=== PATIENT | male | born 1965 | race Caucasian/White ===

== ENCOUNTER 2018-02-23 15:16 | Emergency (ER) | payer MEDICAID, OTHER ==
[~2018-02-23] VITALS: Ht 180.3 cm; Wt 81.6 kg
[2018-02-23 15:21] VITALS: BP 135/88
[2018-02-23 16:35] VITALS: BP 130/85
== END 2018-02-23 16:33 | disposition home or self-care (01) ==
LOC: MED 15:16
DX: S80.12XA Contusion of left lower leg, initial encounter (principal); Z88.0 Allergy status to penicillin; X58.XXXA Exposure to other specified factors, initial encounter; Y93.89 Activity, other specified; Y92.89 Other specified places as the place of occurrence of the external cause; Y99.8 Other external cause status
CPT/HCPCS: 73590; 99283

== ENCOUNTER 2018-03-17 23:50 | Emergency (ER) | payer OTHER ==
[~2018-03-17] VITALS: Ht 179.1 cm; Wt 80.7 kg
[2018-03-17 23:57] VITALS: BP 129/91
[2018-03-18] MEDS ORDERED: HYDROcodone/APAP 5/325 MG 1 TAB TAB PO ONE (00:55)
[2018-03-18] MEDS ORDERED: LIDOCAINE MPF 1% 5mL VIAL INJ ONE (00:55)
[2018-03-18 02:30] VITALS: BP 130/83
== END 2018-03-18 01:31 | disposition home or self-care (01) ==
LOC: MED 23:50
DX: S63.639A Sprain of interphalangeal joint of unspecified finger, initial encounter (principal); Z88.0 Allergy status to penicillin; V28.4XXA Motorcycle driver injured in noncollision transport accident in traffic accident, initial encounter; Y93.55 Activity, bike riding; Y92.410 Unspecified street and highway as the place of occurrence of the external cause; Y99.8 Other external cause status
CPT/HCPCS: 29130; 73130; 99283; J2001

== ENCOUNTER 2018-12-28 13:30 | Emergency (ER) | payer OTHER ==
[~2018-12-28] VITALS: Ht 180.3 cm; Wt 81.6 kg
[2018-12-28 13:37] VITALS: BP 141/94
--- NOTE | 2018-12-28 13:38 | NUR ---
PATIENT PRESENTS TO ED WITH L EYE PAIN X1 AND A HALF MONTHS. PT NOTICED REDNESS YESTERDAY WHEN HE WOKE UP AND NOTED 10/10 PAIN WHEN APPLYING PRESSURE TO EYE. +PHOTOSENSITIVITY +FEVER +NAUSEA +BLURRING OF VISION +H/A, L SIDE -VOMITING. PERRLA; AAOX4 WITH EVEN AND STEADY GAIT; LUNGS CLEAR BL; HR EVEN AND REGULAR; VSS; PATIENT POSITIONED FOR COMFORT; HOB ELEVATED; BEDRAILS UP X2; BED DOWN. ER MD MADE AWARE OF PT STATUS.
[2018-12-28] MEDS ORDERED: ACETAMINOPHEN EXTRA STRENGTH 500 MG TAB PO ONE (14:10)
[2018-12-28] MEDS ORDERED: TETRACAINE HCL/PF 0.5% OPTH 4 ML BTL OP ONE (14:10)
[2018-12-28] MEDS ORDERED: FLUORESCEIN OPTH STRIP 1 MG OP ONE (14:10)
[2018-12-28] MEDS ORDERED: KETOROLAC 30 MG/ML VIAL IM ONE (14:15)
--- NOTE | 2018-12-28 14:15 | NUR ---
PT PRESCRIBED WITH TYLENOL 500MG BUT REFUSED. PA NOTIFIED. RETURNED TYLENOL TO [facility]
--- NOTE | 2018-12-28 14:36 | NUR ---
ER PA AT BEDSIDE PERFORMING TONOMETRY AND FLOURESCIN EXAM
[2018-12-28 15:10] VITALS: BP 137/83
--- NOTE | 2018-12-28 15:11 | NUR ---
Patient discharged with v/s stable. Written and verbal after care instructions given and explained. Patient verbalized understanding. Ambulatory with steady gait. All questions addressed prior to discharge. Advised to follow up with PMD.
--- NOTE | 2018-12-28 15:14 | NUR ---
2 BOTTLE TETRACAINE ORDERED, ONLY 1 USED. RETURNED 1 BOTTLE TO [facility].
== END 2018-12-28 15:11 | disposition home or self-care (01) ==
LOC: MED 13:30
DX: H15.102 Unspecified episcleritis, left eye (principal); R11.0 Nausea; Z88.0 Allergy status to penicillin
CPT/HCPCS: 96372; 99283; J1885

== ENCOUNTER 2019-09-20 17:59 | Emergency (ER) | payer OTHER ==
[~2019-09-20] VITALS: Ht 180.3 cm; Wt 79.4 kg
[2019-09-20 18:09] VITALS: BP 131/69
[2019-09-20] MEDS ORDERED: DICYCLOMINE HCL LIQUID 20 MG, ALUMINUM HYD/MAG/SIMETHICONE 30 ML, LIDOCAINE VISCOUS 2% ... PO ONE ×3 (18:35)
[2019-09-20] MEDS ORDERED: LIDOCAINE VISCOUS 2% 20 ML UDC ONE (18:36)
[2019-09-20] MEDS ORDERED: DICYCLOMINE HCL LIQUID 10 MG/5 ML UDC ONE (18:36)
[2019-09-20] MEDS ORDERED: ALUMINUM HYD/MAG/SIMETHICONE 30 ML UDC ONE (18:36)
[2019-09-20] MEDS ORDERED: ACETAMINOPHEN EXTRA STRENGTH 500 MG TAB PO ONE (18:40)
[2019-09-20] MEDS ORDERED: IBUPROFEN 400 MG TAB PO ONE (18:40)
[2019-09-20 18:57] LABS: BASOPHILS # (AUTO) 0.1 K/uL (0.00-0.22); BASOPHILS % (AUTO) 0.9 % (0.0-2.0); EOSINOPHILS % (AUTO) 0.1 % (0.0-4.0); HEMATOCRIT 47.7 % (36-52); HEMOGLOBIN 16.1 g/dL (12.0-18.0); LYMPHOCYTES # (AUTO) 1.1 K/uL (2.0-11.5); LYMPHOCYTES % (AUTO) 18.8 % (20.5-51.1); MEAN CORPUSCULAR HEMOGLOBIN 32 pg (27-31); MEAN CORPUSCULAR HGB CONC 34 g/dL (33-37); MEAN CORPUSCULAR VOLUME 94.7 fL (80-94); MONOCYTES # (AUTO) 0.6 K/uL (0.8-1.0); MONOCYTES % (AUTO) 10.2 % (1.7-9.3); NEUTROPHILS # (AUTO) 4.1 K/uL (1.8-7.7); PLATELET COUNT (AUTO) 210 K/uL (140-450); RED BLOOD CELL COUNT(AUTO) 5.04 MIL/uL (4.20-6.10); RED CELL DISTRIBUTION WIDTH 12.8 % (11.6-13.7); WHITE BLOOD COUNT (AUTO) 5.8 K/uL (4.8-10.8)
[2019-09-20 19:36] LABS: ALBUMIN 4.3 g/dL (3.4-5.0); ANION GAP 20.2 (8-16); CARBON DIOXIDE 23.8 mmol/L (21-32); CREATININE 0.8 mg/dL (0.6-1.3); TOTAL BILIRUBIN 0.6 mg/dL (0.0-1.0)
[2019-09-20 20:17] VITALS: BP 131/69
== END 2019-09-20 20:17 | disposition home or self-care (01) ==
LOC: MED 17:59
DX: B34.9 Viral infection, unspecified (principal); F10.10 Alcohol abuse, uncomplicated; R10.13 Epigastric pain; F17.200 Nicotine dependence, unspecified, uncomplicated; F10.951 Alcohol use, unspecified with alcohol-induced psychotic disorder with hallucinations; K46.9 Unspecified abdominal hernia without obstruction or gangrene; M79.10 Myalgia, unspecified site; R05 Cough; Z88.0 Allergy status to penicillin; Z20.828 Contact with and (suspected) exposure to other viral communicable diseases
CPT/HCPCS: 71045; 73521; 80053; 83690; 85025; 99284; U0003

== ENCOUNTER 2019-09-25 06:20 | Emergency (ER) | payer OTHER ==
[~2019-09-25] VITALS: Ht 172.7 cm; Wt 95.3 kg
[2019-09-25 06:27] VITALS: BP 110/86
[2019-09-25] MEDS ORDERED: MULTIVITAMIN-12 10 ML, THIAMINE 100 MG, MAGNESIUM SULFATE 50% 2,000 MG, FOLIC ACID 1 MG... IV SCH ×10 (06:35→07:28)
[2019-09-25 07:18] LABS: BASOPHILS % (AUTO) 1.2 % (0.0-2.0); EOSINOPHILS % (AUTO) 0.3 % (0.0-4.0); HEMATOCRIT 45.8 % (36-52); HEMOGLOBIN 15.5 g/dL (12.0-18.0); LYMPHOCYTES # (AUTO) 0.8 K/uL (2.0-11.5); MEAN CORPUSCULAR HEMOGLOBIN 32 pg (27-31); MEAN CORPUSCULAR HGB CONC 34 g/dL (33-37); MONOCYTES # (AUTO) 0.3 K/uL (0.8-1.0); MONOCYTES % (AUTO) 12.1 % (1.7-9.3); NEUTROPHILS # (AUTO) 1.3 K/uL (1.8-7.7); NEUTROPHILS % (AUTO) 52.4 % (42.2-75.2); PLATELET COUNT (AUTO) 176 K/uL (140-450); RED BLOOD CELL COUNT(AUTO) 4.82 MIL/uL (4.20-6.10); RED CELL DISTRIBUTION WIDTH 12.8 % (11.6-13.7); WHITE BLOOD COUNT (AUTO) 2.5 K/uL (4.8-10.8)
[2019-09-25 07:40] LABS: ANION GAP 17.6 (8-16); ASPARTATE AMINOTRANSFERASE 82 U/L (15-37); CARBON DIOXIDE 23.1 mmol/L (21-32); CHLORIDE 102 mmol/L (98-107); CREATININE 0.8 mg/dL (0.6-1.3); GFR ARICAN-AMERICAN 129 mL/min (>90); GLUCOSE 121 mg/dL (74-106); POTASSIUM 3.7 mmol/L (3.5-5.1); SODIUM SERUM 139 mmol/L (136-145); TOTAL BILIRUBIN 0.7 mg/dL (0.0-1.0); UREA NITROGEN, BLOOD 15 mg/dL (7-18)
[2019-09-25 07:45] LABS: BARBITURATE, URINE NEGATIVE ng/ml (NEG <=200); BENZODIAZEPINE, URINE NEGATIVE ng/mL (NEG <=200); CANNABINOID, URINE POSITIVE ng/mL (NEG <=50); COCAINE, URINE NEGATIVE ng/mL (NEG <=300); OPIATE, URINE NEGATIVE ng/mL (NEG <=2000); PHENCYCLIDINE SCREEN,URINE NEGATIVE ng/mL (NEG <=25)
[2019-09-25 07:46] LABS: SALICYLATE < 2.8 mg/dL (2.8-20.0)
[2019-09-25 07:47] LABS: ACETAMINOPHEN < 0.5 ug/ml (10-30)
[2019-09-25] MEDS ORDERED: LORazepam 2 MG/ML VIAL IVP ONE (07:50)
[2019-09-25 09:43] VITALS: BP 115/82
== END 2019-09-25 09:44 | disposition home or self-care (01) ==
LOC: MED 06:20
DX: F19.10 Other psychoactive substance abuse, uncomplicated (principal); F10.20 Alcohol dependence, uncomplicated; R53.1 Weakness; D72.819 Decreased white blood cell count, unspecified
CPT/HCPCS: 36415; 71045; 80053; 80305; 85025; 93005; 96365; 96375; 99285; A9153; G0480; G0482; J2060; J3411; J3475; J3490; J7030; Q0092

== ENCOUNTER 2021-10-07 12:56 | Emergency (ER) | payer BC, OTHER ==
[~2021-10-07] VITALS: Ht 177.8 cm; Wt 83.9 kg
[2021-10-07 13:27] VITALS: BP 115/72
--- NOTE | 2021-10-07 14:28 | NUR ---
56YO MALE PT C/O PINCHING 7/10 L FLANK PAIN X2DAYS. REPORTS NAUSEA IN THE MORNING, DENIES AT THIS TIME. DENIES DYSURIA , V/D, CHILLS, SOB OR CHEST PAIN. STATES DRINKING "ENOUGH" WATER THROUGHOUT THE DAY. DENIES TAKING MEDICATION FOR PAIN. PT AAOX4, NO VISIBLE DISTRESS, RESPIRATIONS EVEN AND UNLABORED. HOB POSITIONED PER COMFORT, BED AT LOWEST POSITION , BED RAIL UP X1. HX: DENIES ALLERGIES : PENICILLIN
[2021-10-07] MEDS ORDERED: KETOROLAC 30 MG/ML VIAL IVP ONE (14:35)
[2021-10-07 14:57] LABS: BASOPHILS % (AUTO) 0.6 % (0.0-2.0); EOSINOPHILS % (AUTO) 1.1 % (0.0-4.0); HEMATOCRIT 40.7 % (36-52); HEMOGLOBIN 13.9 g/dL (12.0-18.0); LYMPHOCYTES # (AUTO) 1.1 K/uL (2.0-11.5); MEAN CORPUSCULAR HEMOGLOBIN 30 pg (27-31); MEAN CORPUSCULAR HGB CONC 34 g/dL (33-37); MEAN CORPUSCULAR VOLUME 86.8 fL (80-94); MONOCYTES # (AUTO) 0.4 K/uL (0.8-1.0); MONOCYTES % (AUTO) 10.5 % (1.7-9.3); NEUTROPHILS # (AUTO) 2.5 K/uL (1.8-7.7); NEUTROPHILS % (AUTO) 61.8 % (42.2-75.2); PLATELET COUNT (AUTO) 167 K/uL (140-450); RED BLOOD CELL COUNT(AUTO) 4.69 MIL/uL (4.20-6.10); RED CELL DISTRIBUTION WIDTH 12.6 % (11.6-13.7); WHITE BLOOD COUNT (AUTO) 4.1 K/uL (4.8-10.8)
[2021-10-07 14:58] LABS: APPEARANCE,URINE CLEAR (CLEAR); BILIRUBIN,URINE NEGATIVE (NEGATIVE); BLOOD, URINE NEGATIVE (NEGATIVE); COLOR,URINE YELLOW (YELLOW); LEUKOCYTE ESTERASE ,URINE NEGATIVE (NEGATIVE); NITRITE, URINE NEGATIVE (NEGATIVE); UGLUCOSE NEGATIVE (NEGATIVE)
[2021-10-07 15:12] LABS: ALBUMIN 3.4 g/dL (3.4-5.0); ANION GAP 8.9 (8-16); CARBON DIOXIDE 27.3 mmol/L (21-32); CREATININE 0.7 mg/dL (0.6-1.3); POTASSIUM 4.2 mmol/L (3.5-5.1); TOTAL BILIRUBIN 0.5 mg/dL (0.0-1.0)
--- NOTE | 2021-10-07 16:21 | NUR ---
PT TAKEN TO CT VIA WHEELCHAIR
--- NOTE | 2021-10-07 16:21 | NUR ---
[facility] in [facility] - 10/07/21 at 1630 by [facility] PT TAKEN TO CT VIA XRAY
--- NOTE | 2021-10-07 16:31 | NUR ---
PT BROUGHT BACK FROM CT VIA TRISH
[2021-10-07 16:35] VITALS: BP 119/73
[2021-10-07] MEDS ORDERED: MORPHINE SULFATE 4 MG/ML SYR IVP ONE (16:40)
--- NOTE | 2021-10-07 17:37 | NUR ---
DPatient discharged with v/s stable. Written and verbal after care instructions FOR LOW BACK SPRAIN given and explained. Patient verbalized understanding. Ambulatory with steady gait. All questions addressed prior to discharge. Advised to follow up with PMD.
--- NOTE | 2021-10-07 17:37 | NUR ---
The patient's care was reviewed and supervised by Lopez Robles RN.
== END 2021-10-07 17:37 | disposition home or self-care (01) ==
LOC: MED 12:56
DX: M54.9 Dorsalgia, unspecified (principal); R10.9 Unspecified abdominal pain; R11.0 Nausea
CPT/HCPCS: 36415; 74176; 80053; 81003; 85025; 96374; 99284; J1885; 81002

== ENCOUNTER 2022-05-01 11:41 | Emergency (ER) | payer BC, OTHER ==
[~2022-05-01] VITALS: Ht 177.8 cm; Wt 81.2 kg
[2022-05-01 12:01] VITALS: BP 122/76
[2022-05-01] MEDS ORDERED: MECL-303 PO (13:53)
== END 2022-05-01 14:09 | disposition home or self-care (01) ==
LOC: MED 11:41
DX: R42 Dizziness and giddiness (principal); F41.9 Anxiety disorder, unspecified; F12.90 Cannabis use, unspecified, uncomplicated; Z88.0 Allergy status to penicillin; Z79.899 Other long term (current) drug therapy
CPT/HCPCS: 99282

== ENCOUNTER 2023-05-13 19:58 | Emergency (ER) | payer OTHER ==
[~2023-05-13] VITALS: Ht 177.8 cm; Wt 83.9 kg
[~2023-05-13 19:58] MED LIST: MECL-303 PO
[2023-05-13 20:00] VITALS: BP 120/77; PULSE 72; RESP 17; TEMP 98.3; O2SAT 98
[2023-05-13] MEDS ORDERED: TOBR5SOL38 OP (23:29)
[2023-05-13] MEDS ORDERED: CETI10SG1 PO (23:29)
[2023-05-13] MEDS ORDERED: NAPR-54 PO (23:29)
[2023-05-13] MEDS: TETRACAINE HCL/PF 0.5% OPTH 4 ML BTL OP ONE (23:34)
[2023-05-13] MEDS: KETOROLAC 30 MG/ML VIAL IM ONE (23:34)
== END 2023-05-13 23:44 | disposition home or self-care (01) ==
LOC: MED 19:58
DX: H10.9 Unspecified conjunctivitis (principal); J06.9 Acute upper respiratory infection, unspecified; Z98.890 Other specified postprocedural states; Z79.899 Other long term (current) drug therapy; Z88.0 Allergy status to penicillin
CPT/HCPCS: 96372; 99283; J1885